=== PATIENT | female | born 2000 ===

== ENCOUNTER 2021-04-18 16:50 | Emergency (ER) | payer OTHER ==
[~2021-04-18] VITALS: Ht 160 cm; Wt 54.4 kg
[2021-04-18] MEDS ORDERED: AZO (17:10)
[2021-04-18] MEDS ORDERED: PYRIDIUM DS200 MG PO (20:51)
== END 2021-04-18 20:55 | disposition home or self-care (01) ==
LOC: ER 16:50
DX: N39.0 Urinary tract infection, site not specified (principal); R10.2 Pelvic and perineal pain; R31.9 Hematuria, unspecified

== ENCOUNTER 2022-04-09 04:47 | Day surgery (SDC) | payer OTHER ==
[~2022-04-09] VITALS: Ht 160 cm; Wt 55.3 kg
[~2022-04-09 04:47] MED LIST: AZO; PYRIDIUM DS200 MG PO; SPRINTEC 28 DA1 EACH PO
== END 2022-04-09 10:25 | disposition home or self-care (01) ==
LOC: CIR.AMB 04:47
PROVIDERS: ATTEND Surgery
DX: D36.14 Benign neoplasm of peripheral nerves and autonomic nervous system of thorax (principal); Z20.822 Contact with and (suspected) exposure to COVID-19